=== PATIENT | male | born 1975 | race Hispanic/Latino ===

== ENCOUNTER 2024-09-23 09:18 | Day surgery (SDC) | payer OTHER ==
[~2024-09-23] VITALS: Ht 182.9 cm; Wt 122.5 kg
[2024-09-23] VITALS (9 sets, daily range): BP systolic 105–126; BP diastolic 55–84; PULSE 48–86; RESP 14–18; TEMP 97.1–98.1
[2024-09-23] MEDS ORDERED: 0.9%NACL 1000ML 1,000 ML IV ONE (10:55)
[2024-09-23] MEDS ORDERED: proPOFol 10 MG/ML 20ML VIAL IV ONE ×2 (13:02)
== END 2024-09-23 14:10 | disposition home or self-care (01) ==
LOC: ENDO 09:18 → DAH 09:18 → ENDO 14:10
PROVIDERS: ATTEND Internal Medicine Gastroenterology
DX: K59.09 Other constipation (principal); K63.5 Polyp of colon; K62.1 Rectal polyp; K64.1 Second degree hemorrhoids; K64.4 Residual hemorrhoidal skin tags; E66.9 Obesity, unspecified; Z68.41 Body mass index [BMI] 40.0-44.9, adult; Z79.899 Other long term (current) drug therapy
CPT/HCPCS: 45380; 45385; J7030; J2704 ×2; A4620; A4215 ×2; A4223; A4222; A4221; A4663; A4606; J3490